=== PATIENT | male | born 1940 | race Caucasian/White ===

== ENCOUNTER → 2017-09-11 | Outpatient (CLI) | payer OTHER ==
[~2017-09-11] MED LIST: ASPIRIN EC81 M1; ATIVAN1 MG; LIPITOR40 MG; LISINOPRIL20 MG; NEXIUM40 MG; WELLBUTRIN XL150 M1
== END ==
LOC: RAD 15:40
DX: M79.672 Pain in left foot (principal); I10 Essential (primary) hypertension; E78.5 Hyperlipidemia, unspecified; K21.9 Gastro-esophageal reflux disease without esophagitis

== ENCOUNTER → 2018-06-14 | Outpatient (CLI) | payer OTHER ==
--- NOTE | 2018-06-15 16:06 | PATH ---
[facility] [address] [place] [address] PATHOLOGY RPT PROCEDURE Name: DAR MALONEY Room #: REG MIRANDA Leach#: [id number] ������������������ Admission: 06/14/18 ������������������ Date of : 42 Discharge: Report #: [id number] Path Case #: [id number] [facility] Accession Number: [id number] . 01 Material submitted: . esophagus - BX DISTAL ESOPHAGUS HX BARRETTS. Modifiers: distal . 01 Clinical history: . Pre-OP DX: GERD Post-OP DX: Leach's esophagus, hiatal hernia, gastritis . 02 Diagnosis: Gastroesophageal mucosa, distal esophagus, endoscopic biopsy: - Specialized columnar epithelium (gastric cardia-type mucosa) with intestinal metaplasia, consistent with Leach's metaplasia. - Negative for dysplasia. - Focal squamous mucosa with mild esophagitis. (IUV:pit 06/15/2018) QTP/06/15/2018 . 02 Comment: Dr. Sarita Gamboa has seen artist's representative slide on this case and concurs with my diagnosis. (IUV:pit 06/15/2018) . 02 Electronically signed: . Amy Fierro MD, Pathologist NPI- [id number] . 01 Gross description: . Received in formalin labeled "RicaCharlesDar, BX distal esophagus, rule out Leach's," are 3 segments of sunshine soft tissue measuring 0.9 x 0.8 x 0.3 cm in aggregate dimensions and ranging from 0.4 to 0.5 cm in maximum dimension. The specimen is submitted entirely in cassette A1. (TSD; 06/14/2018) TOB/TOB . 02 Pathologist provided ICD-10: K22.70, K20.9 . 02 CPT . 153847 Specimen Comment: A courtesy copy of this report has been sent to Specimen Comment: [phone], . Specimen Comment: Report sent to / DR ALFARO Performed at: 01 [place] [address] PATHOLOGY RPT PROCEDURE Name: DAR MALONEY Room #: REG MIRANDA Leach#: [id number] ������������������ Admission: 06/14/18 ������������������ Date of : 42 Discharge: Report #: [id number] Path Case #: [id number] [address] [facility] [address], [place] [id number] MD Cameron Vail MD Phone: [phone] Performed at: [address] [id number] MD Amy Fierro MD Phone: [phone]
--- NOTE | 2018-06-15 16:19 | P ---
[facility] [place] [address] PROCEDURE REPORT Name: MISAEL MALONEY Room #: REG [facility]#: [id number] Admission: 06/14/18 ������������������ Attend Phys: Ulices Burgos MD Discharge: ������������������ Date of : 42 Report #: [id number] THIS REPORT FOR: //name// CC: Ulices Draper DATE OF SERVICE: 06/14/2018 OUTPATIENT UPPER ENDOSCOPY BRIEF HISTORY: The patient is a 78-year-old male with a history of Leach esophagus. He has always had nondysplastic mucosa in the past. He has a 2 cm segment of Leach. His reflux symptoms are well controlled on combination of Nexium and famotidine. PREOPERATIVE DIAGNOSIS: Leach's esophagus. POSTOPERATIVE DIAGNOSES: 1. Short segment Leach mucosa. 2. A 4-5 cm sliding type hiatus hernia. 3. Diffuse gastritis. MEDICATIONS: Deep sedation with propofol per anesthesia. SPECIMEN: Biopsies of Leach mucosa. ESTIMATED BLOOD LOSS: 3 mL. PROCEDURE: Esophagogastroduodenoscopy with biopsy. FINDINGS: Prior to propofol sedation, the procedure of upper endoscopy discussed with the patient as well as potential risks and its complications. He indicates he understands and desires to proceed. DESCRIPTION OF PROCEDURE: With the patient in left lateral decubitus position, digital examination was completed, which revealed no abnormalities. Subsequently, the Olympus video endoscope was inserted in the cervical esophagus under direct vision without difficulty. Examination of this organ through its entire length revealed normal esophageal mucosa down to the distal esophagus. In the distal esophagus, he was noted to have approximately 2 cm segment of Leach mucosa. This was examined on end view as well as retroflexed views. It was examined with white light as well as narrow band imaging. The mucosa was completely flat. There were no ulcers, mass lesions or nodules seen involving the Leach mucosa. There was no endoscopic evidence of reflux esophagitis. Multiple biopsies were obtained. The scope was advanced and he has a 4-5 cm [facility] [address] [place] [address] PROCEDURE REPORT Name: MISAEL MALONEY Room #: REG [facility] Hany#: [id number] Admission: 06/14/18 ������������������ Attend Phys: Ulices Burgos MD Discharge: ������������������ Date of : 42 Report #: [id number] sliding type hiatus hernia. The gastroesophageal junction is about 35 cm. The diaphragmatic hiatus is about 40 cm. The mucosa within the hernia is unremarkable. Scope was advanced fully into the stomach, was examined on end view as well as retroflexed views. There was a pattern of a diffuse gastritis with patchy erythema and this has been noted in the past. No ulcers or erosions were seen. Upon retroflexion, the hiatus hernia and Leach mucosa was seen, but no other abnormalities were identified. The pylorus, duodenal bulb and postbulbar sweep were inspected and noted to be unremarkable. At that point, the scope was slowly withdrawn and careful circumferential views confirmed the above findings. The patient tolerated the procedure well. CONDITION OF THE PATIENT UPON DISCHARGE: Following the procedure, the patient was drowsy, will be discharged home when fully ambulatory. INSTRUCTIONS TO THE PATIENT AND FAMILY AT THE TIME OF DISCHARGE: We will follow up on the path and make further recommendations. If there is no evidence of dysplasia on his biopsies, he should return in 3 years. If dysplasia is present, further intervention or closer surveillance may be indicated. He should continue his PPI and famotidine at a dose to control his symptoms. He will follow up with Dr. Abel Draper and return to see me as needed. ��������������������������������������������� <ELECTRONICALLY SIGNED> ���������������������������������������� By: Ulices Burgos MD ��������������������������������������������� 06/15/18 1619 [id number] Ulices Burgos MD /nt
== END | disposition home or self-care (01) ==
LOC: GI 07:28
DX: K22.70 Barrett's esophagus without dysplasia (principal); K29.70 Gastritis, unspecified, without bleeding; K21.0 Gastro-esophageal reflux disease with esophagitis; K44.9 Diaphragmatic hernia without obstruction or gangrene; Z79.82 Long term (current) use of aspirin; Z79.899 Other long term (current) drug therapy; Z98.890 Other specified postprocedural states
CPT/HCPCS: 62110; 62900

== ENCOUNTER → 2019-07-05 | Outpatient (CLI) | payer OTHER | LOC: SJCVC 09:55 | DX: R94.31 Abnormal electrocardiogram [ECG] [EKG] (principal); I45.4 Nonspecific intraventricular block; I10 Essential (primary) hypertension; E78.00 Pure hypercholesterolemia, unspecified; I48.0 Paroxysmal atrial fibrillation; K21.9 Gastro-esophageal reflux disease without esophagitis; G31.9 Degenerative disease of nervous system, unspecified; I38 Endocarditis, valve unspecified ==